=== PATIENT | female | born 1970 | race Caucasian/White ===

== ENCOUNTER 2016-06-07 09:53 | Emergency (ER) | payer OTHER ==
--- NOTE | 2016-06-07 10:08 | ED Physician Chart ---
Chief Complaint/HPI - Patient Information Date Seen:: 06/07/16 Time Seen:: 10:03 Chief Complaint:: Frontal sinus pressure for about one week. History of Present Illness:: Brought in by for the above reason. Fever up to 102F. Nasal congestion with cough. Transient N/V with vomitus consists of gastric content. No hematemesis. No dypnea. No lightheadeness. Allergies:: NKA Vitals:: see Nurse Note. Historian:: Patient Family MD/PCP:: Dr. Reed LMP:: 05/25/16 Review:: Nurse's Note Reviewed Review of Systems - Review of Systems General/Constitutional: Fever, No chills, No weakness, No loss of appetite Skin: No skin lesions, No rash, No bruising Head: Headache (frontal sinus pressure.), No light-headedness Eyes: No loss of vision, No pain, No diplopia ENT: Earache, Nasal drainage, Sore throat Neck: No neck pain, No swelling, No thyromegaly, No stiffness, No mass noted Cardio Vascular: No chest pain, No palpitations, No PND, No orthopnea, No edema Pulmonary: No SOB, Cough, No sputum, No wheezing GI: Nausea, Vomiting (transient), No diarrhea, No pain, No melena, No hematochezia, No constipation, No hematemesis G/U: No dysuria, No frequency, No hematuria [employer]: No vaginal discharge, No abnormal vaginal bleed Musculoskeletal: No bone or joint pain, No back pain, No muscle pain Endocrine: No polyuria, No polydipsia Psychiatric: No prior psych history Hematopoietic: No bruising, No lymphadenopathy Allergic/Immuno: No urticaria, No angioedema Neurological: No syncope, No focal symptoms, No weakness, No paresthesia, Headache, No seizure, No dizziness, No confusion, No vertigo Past Medical History - Past Medical History Past Medical History: No significant medical hx Family History: Diabetes Melitus (father), HTN (father) Social History: Non Smoker, No Alcohol, No Drug Use, , Employed, Other ( lives with her .) Employment:: Nurse Surgical History: (x 3. Last one in '.) Psychiatricy History: None Medication: Reviewed Family Medical History - Family Member Mother History Unknown: Yes Physical Exam - Physical Examination General/Constitutional: Awake, Well-developed, well-nourished, Alert, No distress, GCS 15, Non-toxic appearing, Ambulatory Other Gen/Cons comments:: Breathes comfortably, speaks clearly, interacts normally, and ambulates without difficulty. Head: Atraumatic Other Head comments:: Mild tenderness at frontal sinus regions. Eyes: Lids, conjuctiva normal, PERRL, EOMI Skin: Nl inspection, No rash, No skin lesions, No ecchymosis, Well hydrated, No lymphadenopathy ENMT: TM canals nl, Lips, teeth, gums nl Other ENMT comments:: Trace yellow nasal exudate noticed. Trace light yellow postnasal drip. Minimal erythema in pharynx. No exudate otherwise. Neck: Nontender, Full ROM w/o pain, No JVD, No nuchal rigidity, No bruit, No mass, No stridor Respiratory: Nl effort/Exclusion, Clear to Auscultation, No Wheeze/Rhonchi/Rales Cardio Vascular: RRR, No murmur, gallop, rubs, NL S1 S2 GI: No tenderness/rebounding/guarding, No organomegaly, No hernia, Normal BS's, Nondistended, No mass/bruits, No McBurney tenderness Other GI comments:: Abdomen is soft. Extremities: No tenderness or effusion, Full ROM, normal strength in all extremities, No edema, Normal digits & nails Neuro/Psych: Alert/oriented (oriented x 3), Judgement/insight normal, Mood normal, Normal gait, No focal deficits ED Septic Shock - . Is Septic Shock (SBP<90, OR Lactate>4 mmol\L) present?: No Reassessment (Disposition) - Reassessment Reassessment:: 1145 Pt feels much better and has been taking po well without N/V/D. Patient requests to go home now and does not want further observation/management in hospital. Aftercare instructions given. Her will drive her home. Reassessment Condition:: Improved - Diagnosis Diagnosis:: Acute frontal sinusitis, stable and improved. - Aftercare/Follow up Instructions Aftercare/Follow-Up Instructions:: Refer to Discharge Instructions Notes:: Push oral fluid. Bedrest. May take Motrin and/or Tylenol as directed as needed for fever or pain, not to take first dose of Motrin at least 6 hours after Toradol was given here. F/U with PCP Dr. Reed in one day for recheck and repeat BP. Return to ER immediately if condition worsens or if any further questions/problems. Medication Prescribed:: Bactrim DS one tab po q12h for 14 days. D-28 R-0 - Patient Disposition Discharge/Transfer:: Home Time:: 11:50 Condition at Disposition:: Stable, Improved
== END 2016-06-07 11:50 | disposition home or self-care (01) ==
LOC: ER 09:53
DX: J01.10 Acute frontal sinusitis, unspecified (principal)
CPT/HCPCS: 99284; 96374; 96375; J1885; J2405; Z7502